=== PATIENT | female | born 1995 | race Caucasian/White ===

== ENCOUNTER 2017-09-10 12:20 | Observation (INO) | payer OTHER ==
[~2017-09-10] VITALS: Ht 162.6 cm; Wt 78.9 kg
== END 2017-09-10 13:40 | disposition home or self-care (01) ==
LOC: L&D 12:20
PROVIDERS: ADMIT Obstetrics & Gynecology; ATTEND Obstetrics & Gynecology
DX: O26.893 Other specified pregnancy related conditions, third trimester (principal); R20.2 Paresthesia of skin; O21.2 Late vomiting of pregnancy; Z3A.35 35 weeks gestation of pregnancy
CPT/HCPCS: 99281; G0378

== ENCOUNTER 2017-09-10 13:41 | Emergency (ER) | payer MEDICAID, OTHER ==
[~2017-09-10] VITALS: Ht 162.6 cm; Wt 79.0 kg
[2017-09-10] MEDS ORDERED: SODIUM CHLORIDE 0.9% 1,000 ML IV ONE (14:58)
[2017-09-10 15:25] LABS: BASOPHILS % 0.2 % (0.0-2.0); EOSINOPHILS % 0.3 % (0.0-5.0); HEMATOCRIT. 30.9 % (36.0-48.0); HEMOGLOBIN. 10.2 g/dL (12.0-16.0); MEAN CORPUSCULAR HEMOGLOBIN 27.3 pg (28.0-32.0); MEAN PLATELET VOLUME 11.2 fl (7.4-10.4); MONOCYTES % 4.9 % (2.0-8.0); NEUTROPHILS % 79.6 % (40.0-76.0); PLATELET 129 x1000/uL (130-400); RED BLOOD CELL COUNT 3.72 mill/uL (4.2-5.4); RED CELL DISTRIBUTION WIDTH 14.8 % (11.6-14.6)
[2017-09-10 15:28] LABS: CHLORIDE 107 mEq/L (98-107)
[2017-09-10 15:52] LABS: B-HCG QUANTITATIVE 20902 mIU/mL (<3)
[2017-09-10 16:00] VITALS: BP 110/58
== END 2017-09-10 16:15 | disposition home or self-care (01) ==
LOC: ER 13:41
DX: O26.893 Other specified pregnancy related conditions, third trimester (principal); R42 Dizziness and giddiness; R53.1 Weakness; O99.013 Anemia complicating pregnancy, third trimester; R20.0 Anesthesia of skin; Z3A.35 35 weeks gestation of pregnancy
CPT/HCPCS: 36415; 80053; 84702; 85025; 85610; 86850; 86900; 86901; 93005; 96360; 99285; J7030; Z7610

== ENCOUNTER 2017-09-30 22:24 | Observation (INO) | payer MEDICAID ==
[~2017-09-30] VITALS: Ht 162.6 cm; Wt 79.4 kg
[2017-09-30] MEDS ORDERED: PREN1TAB33 MT (22:42)
[2017-09-30] MEDS: LACTATED RINGERS 1,000 ML IV SCH ×2 (23:03→23:37)
[2017-09-30] MEDS: TERBUTALINE SULFATE 1MG/ML VIAL SUBCUT PRN ×2 (23:04→23:32)
[2017-10-01] MEDS ORDERED: ACETAMINOPHEN 500MG TABLET PO NR (00:15)
[2017-10-01 02:00] LABS: CLARITY URINE CLEAR (CLEAR); COLOR URINE YELLOW (YELLOW); KETONES URINE TRACE (NEGATIVE); LEUKOCYTE ESTERASE URINE NEGATIVE (NEGATIVE); NITRITE URINE NEGATIVE (NEGATIVE); OCCULT BLOOD URINE 1+ (NEGATIVE); PH URINE 6.5 (4.5-8.0); PROTEIN URINE NEGATIVE (NEGATIVE); SPECIFIC GRAVITY URINE 1.005 (1.005-1.030); UROBILINOGEN URINE 0.2 E.U./dL (0.2-1.0)
[2017-10-01 02:10] LABS: *AMPHETAMINES SCREEN URINE NEGATIVE (NEGATIVE)
[2017-10-01 02:11] LABS: *BARBITURATES SCREEN URINE NEGATIVE (NEGATIVE); *BENZODIAZEPINES SCREEN URINE NEGATIVE (NEGATIVE); *COCAINE SCREEN URINE NEGATIVE (NEGATIVE); METHADONE URINE SCREEN NEGATIVE (NEGATIVE); OPIATES URINE SCREEN NEGATIVE (NEGATIVE); PHENCYCLIDINE URINE SCREEN NEGATIVE (NEGATIVE)
[2017-10-01 02:12] LABS: CANNABINOID URINE SCREEN NEGATIVE (NEGATIVE)
[2017-10-01] MEDS ORDERED: TERBUTALINE SULFATE 1MG/ML VIAL SUBCUT NR (03:15)
== END 2017-10-01 03:40 | disposition home or self-care (01) ==
LOC: L&D 22:24
PROVIDERS: ADMIT Obstetrics & Gynecology; ATTEND Obstetrics & Gynecology
DX: O62.9 Abnormality of forces of labor, unspecified (principal); Z3A.38 38 weeks gestation of pregnancy
CPT/HCPCS: 80305; 81003; 96360; 96361; 96372; G0378; J3105; J7120; 59412

== ENCOUNTER 2019-01-04 16:50 | Emergency (ER) | payer MEDICAID ==
[~2019-01-04 16:50] MED LIST: PREN1TAB33 MT
[2019-01-04 19:59] VITALS: BP 110/59
[2019-01-04 20:18] LABS: HEPATITIS B SURFACE ANTIGEN NEGATIVE
[2019-01-04 20:47] LABS: HEPATITIS A AB IGM NEGATIVE (NEGATIVE)
[2019-01-06 08:07] LABS: HIV SCREEN 4G Non Reactive (Non Reactive)
== END 2019-01-04 22:00 | disposition home or self-care (01) ==
LOC: ER 21:39
DX: N63.23 Unspecified lump in the left breast, lower outer quadrant (principal); Z20.2 Contact with and (suspected) exposure to infections with a predominantly sexual mode of transmission; K21.9 Gastro-esophageal reflux disease without esophagitis; Z98.890 Other specified postprocedural states
CPT/HCPCS: 36415; 86705; 86709; 86803; 87340; 87389; 99283